=== PATIENT | female | born 1980 | race Caucasian/White ===

== ENCOUNTER 2019-02-06 09:26 | Emergency (ER) | payer MEDICAID, OTHER ==
[~2019-02-06] VITALS: Wt 42.2 kg
[2019-02-06] MEDS ORDERED: CARB100/5M (09:43)
[2019-02-06] MEDS ORDERED: ESTR1PAT37 (09:43)
[2019-02-06] MEDS ORDERED: CETI-265 (09:43)
[2019-02-06] MEDS ORDERED: IPRA3AMP31 (09:43)
[2019-02-06] MEDS ORDERED: LEVO50TA6 (09:43)
--- NOTE | 2019-02-06 09:48 | ED Integumentary General ---
General Chief Complaint: Skin/Wound Problems Stated Complaint: LT ARM WOUND Source: patient Exam Limitations: no limitations History of Present Illness Date Seen by Provider: Feb 06, 2019 Time Seen by Provider: 09:30 Initial Comments Patient presents to ER by private conveyance with her mother who is also her caregiver. Patient has cervical palsy and is dependent on her mother for cares as well as a wheelchair. For the past month the mother's noticed some pink and irritated skin in the fold of her right antecubital space. She had been doctoring it with miconazole topical powder. One week ago it opened up a small sore so she went to urgent care and they put her on mupirocin topically. She's been using it and trying to keep the skin clean and dry as well as possible however has not healed. The patient does not have a lot of pressure ulcer problems. There is no drainage from the wound. No fevers or chills. She has had occasional cough and several of the caregivers have had colds recently. Allergies and Home Medications Allergies Coded Allergies: adhesive tape (Verified Allergy, Unknown, 02/06/19) tobramycin (Verified Allergy, Unknown, rash, 02/06/19) Patient Home Medication List Home Medication List Reviewed: Yes Review of Systems Review of Systems Constitutional: No chills, No diaphoresis EENTM: No ear discharge, No ear pain Respiratory: cough; No phlegm, No short of breath Cardiovascular: No chest pain, No edema Gastrointestinal: No abdominal pain, No vomiting Genitourinary: No discharge, No dysuria, No hematuria Past Qqewmpq-Ocxpyr-Xlnkjw Hx Patient Social History Alcohol Use: Denies Use Recreational Drug Use: No Smoking Status: Never a Smoker Physical Exam Vital Signs Capillary Refill : General Appearance: WD/WN, no apparent distress HEENT: PERRL/EOMI, TMs normal, pharynx normal Cardiovascular: normal peripheral pulses, regular rate, rhythm, no edema Respiratory: lungs clear, normal breath sounds, no respiratory distress, no accessory muscle use Neurologic/Psychiatric: alert, normal mood/affect Skin: other (in the fold of the right antecubital space is a 2 mm round white breakdown surrounded by about 1/2 cm radius of erythema without induration, fluctuance or abscess. No discharge.) Progress/Results/Core Measures Progress Progress Note : Time: 09:45 Progress Note She has failed outpatient topical so we'll put her on some Bactrim with anti- MRSA coverage. We'll also suggest that she follow up with wound care for continued management if the antibiotics do not help. We have discontinued use of the topical powders on the open wound. It is just into the dermis and there is nothing to be drained palpable. It appears to be some breakdown probably secondary to maceration from how she holds her arm in a semi-contractured state. We have suggested also that she keep the skin dry and open to air when possible. Departure Impression Primary Impression: Wound of skin Additional Impression: URI (upper respiratory infection) Qualified Codes: J00 - Acute nasopharyngitis [common cold] Disposition: HOME, SELF-CARE Condition: Stable Departure-Patient Inst. Decision time for Depature: 09:47 Referrals: LAVON DICKERSON MD (PCP/Family) Primary Care Physician JILLIAN DURAND MD Patient Instructions: Wound Care (DC) Add. Discharge Instructions: Keep the wound clean with regular soap and water. Do not use peroxide, alcohol, iodine. Keep the wound dry and open to air when possible. If she continues to flex her arm then you can at least put a dry piece of cotton gauze such as a 4 x 4 to help with moisture away. Tomorrow call Dr. Blake at [facility] and request an appointment for follow-up. passenger service supervisor the Bactrim and give 20 mL through the PEG tube twice a day for the next week. Expect to see some improvement by day 3 or 4 of antibiotics. All discharge instructions reviewed with patient and/or family. Voiced understanding. Scripts Sulfamethoxazole/Trimethoprim (Sulfamethoxazole-Tmp Susp 200MG/40MG/5ML) 473 Ml Oral.susp 20 ML PO BID for 7 Days, #280 ML 0 Refills Prov: ADELINA HERNÁNDEZ 02/06/19 Copy Copies To 1: JILLIAN DURAND MD, TITUS J Feb 06, 2019 09:48
[2019-02-06] MEDS ORDERED: SULF473O9 PO (09:49)
[2019-02-06 09:55] VITALS: BP 92/53
== END 2019-02-06 10:05 | disposition home or self-care (01) ==
LOC: ER FS 09:28
DX: L98.499 Non-pressure chronic ulcer of skin of other sites with unspecified severity (principal); J06.9 Acute upper respiratory infection, unspecified; Z88.1 Allergy status to other antibiotic agents; Z88.8 Allergy status to other drugs, medicaments and biological substances
CPT/HCPCS: 99282

== ENCOUNTER → 2021-03-19 | Outpatient (CLI) | payer MEDICARE, MEDICAID ==
[~2021-03-19] MED LIST: CARB100/5M; CETI-265; ESTR1PAT37; IPRA3AMP31; LEVO50TA6; SULF473O9 PO
--- NOTE | 2021-03-19 12:07 | Diagnostic Imaging Report ---
EXAMINATION: Chest 2 view HISTORY: PNEUMONIA COMPARISON: None available. FINDINGS: Heart size and pulmonary vasculature are normal. The lungs are clear without consolidation, pleural effusion, or pneumothorax. The osseous structures are intact. IMPRESSION: 1. No acute radiographic abnormality in the chest. Dictated by: Dictated on workstation # [id number]
[2021-03-19 13:25] LABS: BASOPHILS % (AUTO) 0 % (0-10); EOSINOPHILS # (AUTO) 0.7 10^3/uL (0.0-0.3); EOSINOPHILS % (AUTO) 12 % (0-10); HEMATOCRIT 38 % (35-52); LYMPHOCYTES # (AUTO) 1.6 X 10^3 (1.0-4.0); LYMPHOCYTES % (AUTO) 27 % (12-44); MEAN CORPUSCULAR HEMOGLOBIN 36 pg (25-34); MEAN CORPUSCULAR HGB CONC 34 g/dL (32-36); MEAN CORPUSCULAR VOLUME 107 fL (80-99); MEAN PLATELET VOLUME 11.1 fL (9.0-12.2); MONOCYTES # (AUTO) 0.4 X 10^3 (0.0-1.0); MONOCYTES % (AUTO) 7 % (0-12); NEUTROPHILS # (AUTO) 3.1 X 10^3 (1.8-7.8); NEUTROPHILS % (AUTO) 54 % (42-75); PLATELET COUNT 229 10^3/uL (130-400); WHITE BLOOD COUNT 5.8 10^3/uL (4.3-11.0)
[2021-03-19 13:26] LABS: BASOPHILS % (MANUAL) 1 %; EOSINOPHILS % (MANUAL) 16 %; LYMPHOCYTES % (MANUAL) 28 %; MONOCYTES % (MANUAL) 1 %; NEUTROPHILS % (MANUAL) 54 %; PLATELET ESTIMATE ADEQUATE
== END ==
LOC: LAB FS 11:30
PROVIDERS: ATTEND Nurse Practitioner Family
DX: J18.9 Pneumonia, unspecified organism (principal)
CPT/HCPCS: 36415; 71046; 85007; 85027

== ENCOUNTER 2021-05-27 09:19 | Emergency (ER) | payer MEDICARE, MEDICAID ==
[~2021-05-27] VITALS: Ht 145 cm; Wt 40.8 kg
--- OUTSIDE RECORDS SUMMARY | 2021-05-27 09:25 | XMS REPORT | Clinical Summary ---
Author Author [facility] Organization [facility] Address Unknown Phone Unavailable Care Team Providers Care Leather Goods I Assembler Name Role Phone Jamie Lawrence MD PCP Deborah Marie MD Unavailable Louie Ansari MD Unavailable Elvis Davila DO Unavailable Zaira Lawson MD, John R Unavailable Source Comments Some departments are not documenting in the electronic medical record. If you d o not see the information that you expected, contact Release of Information in [facility] Health Information Management department at [phone] for further assistan ce in locating additional records.[facility] Allergies No known active allergies Medications End Date Status Medication Sig Dispensed Refills Start Date Active methylphenidate SR Take 1 Tab by 0 (CONCERTA) 54 mg tablet mouth Daily. 8 Active estrogens, Take 1 Tab by 0 conj/medroxyprogesterone mouth At 8 (PREMPRO) 0.625/2.5 mg Bedtime tablet Daily. Active MULTIVITAMIN PO Take 1 Tab by 0 mouth Daily. 8 Active carbamazepine XR Take 2 Tabs 60 0 (TEGRETOL XR) 100 mg by mouth 8 tablet Twice Daily. Active POLYETHYLENE GLYCOL 3350 Take 1 Dose 0 (MIRALAX PO) Pack by mouth Daily. 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, with int ractable epilepsy Intermittent dysphagia 08/21/2007 Encephalopathy, unspecified 08/21/2007 Surgical History Surgery Date Site/Laterality Comments FOOT SURGERY Heel cord surgery ENTERIC TUBE PLACEMENT Medical History Medical History Date Comments Leukemia (HCC) Age 2 Brain damage Family History Medical History Relation Name Comments Stroke Father Relation Name Status Comments Father Alive Mother Alive Social History Date Tobacco Use Types Packs/Day Years Used Never Smoker Smokeless Tobacco: Never Used Comments Alcohol Use Standard Drinks/Week No 0 (1 standard drink = 0.6 o z pure alcohol) Sex Assigned at Date Recorded Not on file Last Filed Vital Signs Reading Time Taken Comments Vital Sign 124/80 08/06/2012 12:02 PM COILER Blood Pressure 57 08/06/2012 12:02 PM COILER Pulse 36.1 °C (97 °F) 08/06/2012 12:02 PM COILER Temperature 14 08/06/2012 12:02 PM COILER Respiratory Rate 97% 12/01/2009 6:00 AM CDT Oxygen Saturation - - Inhaled Oxygen Concentration 37.6 kg (83 lb) 08/06/2012 12:02 PM COILER stated Weight 144.8 cm (4' 9") 08/06/2012 12:02 PM COILER Height 17.96 08/06/2012 12:02 PM COILER Body Mass Index Plan of Treatment Health Maintenance Due Date Last Done Comments HIV SCREENING 1994 DTAP/TDAP VACCINES (1 - 1997 Tdap) HEPATITIS C SCREENING 1997 PHYSICAL (COMPREHENSIVE) 1997 EXAM CERVICAL CANCER SCREENING 01/02/2000 BREAST CANCER SCREENING 2019 INFLUENZA VACCINE 12/30/2020 Results Not on filefrom Last 3 Months Advance Directives Patient Housing Management Representative Explanation Type Date Recorded Advance 05/04/2013 1:43 PM Directive/DPOA Care Teams Start Date End Date Leather Goods I Assembler Relationship Specialty 11/21/09 Jamie Lawrence MD PCP - General [address] [place] [id number] 04/01/10 Deborah Marie MD [address] [facility] [address] [place] [id number] 04/01/10 Louie Ansari MD [address] [facility] [address] [place] [address] 04/01/10 Elvis Davila DO [address] [facility] [place], [place] [id number] 05/07/12 Elvis Meneses Jr., MD [address] [address]
[2021-05-27 09:32] VITALS: BP 104/63
--- NOTE | 2021-05-27 09:36 | ED Cough/URI ---
General Stated Complaint: SOB,LOW O2,COUGH History of Present Illness Date Seen by Provider: May 27, 2021 Time Seen by Provider: 09:31 Initial Comments 41-year-old female brought in by her mom who is her manager home healthcare. Patient has a history of cerebral palsy. Reports that she noticed yesterday she became little more gurgly and seemed to be a little bit more coughing and short of breath than she normally is. Patient does not have any reports of fever but frequently does not run fevers. Patient does have frequent bronchitis due to her CP. No known exposure to Covid. Allergies and Home Medications Allergies Coded Allergies: adhesive tape (Verified Allergy, Unknown, 02/06/19) tobramycin (Verified Allergy, Unknown, rash, 02/06/19) Patient Home Medication List Home Medication List Reviewed: Yes Azithromycin (Azithromycin) 200 Mg/5 Ml Susp.recon, 6.25 ML PO DAILY Prescribed by: CAYDEN ESTRADA on 05/27/21 1057 Carbamazepine (Carbamazepine) 20 Mg/Ml Oral.susp, (Reported) Entered as Reported by: AMI CHAVEZ on 02/06/19942 Cetirizine HCl (Cetirizine HCl) 1 Mg/1 Ml Solution, (Reported) Entered as Reported by: AMI CHAVEZ on 02/06/19942 Estradiol/Levonorgestrel (Climara Pro Patch 0.045mg/hr) 1 Each Patch.tdwk, (Reported) Entered as Reported by: AMI CHAVEZ on 02/06/19942 Ipratropium/Albuterol Sulfate (Iprat-Albut 0.5-3(2.5) mg/3 ml) 3 Ml Ampul.neb, (Reported) Entered as Reported by: AMI CHAVEZ on 02/06/19942 Levothyroxine Sodium (Levothyroxine Sodium) 50 Mcg Tablet, (Reported) Entered as Reported by: AMI CHAVEZ on 02/06/19942 Sulfamethoxazole/Trimethoprim (Sulfamethoxazole-Tmp Susp 200MG/40MG/5ML) 473 Ml Oral.susp, 20 ML PO BID Prescribed by: ADELINA HERNÁNDEZ on 02/06/19 0949 Review of Systems Review of Systems Constitutional: see HPI; No chills, No fever Respiratory: see HPI, cough Cardiovascular: no symptoms reported Gastrointestinal: no symptoms reported Genitourinary: no symptoms reported Musculoskeletal: no symptoms reported Skin: no symptoms reported Psychiatric/Neurological: No Symptoms Reported Past Irfgans-Qvdjjc-Edtopw Hx Seasonal Allergies Seasonal Allergies: No Past Medical History Surgeries: Yes (feeding tube) Respiratory: Yes Pneumonia, COPD Cardiac: No Neurological: Yes (CVD) Cerebral Palsy, Seizure Disorder Genitourinary: No Gastrointestinal: Yes (feeding tube) Musculoskeletal: Yes Contracture Endocrine: Yes Hypothyroidsim HEENT: No Cancer: Yes Leukemia Psychosocial: No Integumentary: No Physical Exam Vital Signs - First Documented 05/27/21 11:10 Pulse Ox 91 Capillary Refill : Height: 0'0" Weight: 93lbs. oz. 42.298856np; BMI Method:Stated General Appearance: no apparent distress, other (Wheelchair-bound) Respiratory: other (Mild decreased breath sounds but mostly upper airway sounds been referred) Cardiovascular: normal peripheral pulses, regular rate, rhythm Gastrointestinal: soft Neurologic/Psychiatric: other (Patient at her baseline mentation) Skin: normal color, warm/dry Focused Exam Lactate Level 05/27/21 10:00: Lactic Acid Level 1.51 Lactic Acid Level Laboratory Tests Test 05/27/21 10:00 Lactic Acid Level 1.51 MMOL/L (0.50-2.00) Progress/Results/Core Measures Suspected Sepsis SIRS Temperature: Pulse: Respiratory Rate: Laboratory Tests 05/27/21 10:00: White Blood Count 8.5 Blood Pressure / Mean: 05/27/21 10:00: Lactic Acid Level 1.51 Laboratory Tests 05/27/21 10:00: Creatinine 0.50L, Platelet Count 252, Total Bilirubin 0.2 Results/Orders Lab Results Laboratory Tests Test 05/27/21 10:00 Range/Units White Blood Count 8.5 4.3-11.0 10^3/uL Red Blood Count 3.70 L 3.80-5.11 10^6/uL Hemoglobin 13.5 11.5-16.0 g/dL Hematocrit 38 35-52 % Mean Corpuscular Volume 103 H 80-99 fL Mean Corpuscular Hemoglobin 36 H 25-34 pg Mean Corpuscular Hemoglobin Concent 35 32-36 g/dL Red Cell Distribution Width 12.9 10.0-14.5 % Platelet Count 252 130-400 10^3/uL Mean Platelet Volume 10.8 9.0-12.2 fL Immature Granulocyte % (Auto) % Neutrophils (%) (Auto) 67 42-75 % Lymphocytes (%) (Auto) 16 12-44 % Monocytes (%) (Auto) 5 0-12 % Eosinophils (%) (Auto) 13 H 0-10 % Basophils (%) (Auto) 0 0-10 % Neutrophils # (Auto) 5.7 1.8-7.8 X 10^3 Lymphocytes # (Auto) 1.3 1.0-4.0 X 10^3 Monocytes # (Auto) 0.4 0.0-1.0 X 10^3 Eosinophils # (Auto) 1.1 H 0.0-0.3 10^3/uL Basophils # (Auto) 0.0 0.0-0.1 10^3/uL Neutrophils % (Manual) 55 % Lymphocytes % (Manual) 14 % Monocytes % (Manual) 3 % Eosinophils % (Manual) 12 % Basophils % (Manual) 0 % Band Neutrophils 15 % Atypical Lymphocytes 1 % Platelet Estimate NORMAL Macrocytosis 1+ Sodium Level 134 L 135-145 MMOL/L Potassium Level 3.9 3.6-5.0 MMOL/L Chloride Level 99 98-107 MMOL/L Carbon Dioxide Level 23 21-32 MMOL/L Anion Gap 12 5-14 MMOL/L Blood Urea Nitrogen 13 7-18 MG/DL Creatinine 0.50 L 0.60-1.30 MG/DL Estimat Glomerular Filtration Rate 135 BUN/Creatinine Ratio 26 Glucose Level 115 H 70-105 MG/DL Lactic Acid Level 1.51 0.50-2.00 MMOL/L Calcium Level 9.3 8.5-10.1 MG/DL Corrected Calcium 9.6 8.5-10.1 MG/DL Total Bilirubin 0.2 0.1-1.0 MG/DL Aspartate Amino Transf (AST/SGOT) 17 5-34 U/L Alanine Aminotransferase (ALT/SGPT) 20 0-55 U/L Alkaline Phosphatase 163 H 40-136 U/L C-Reactive Protein 5.20 H <0.50 MG/DL Total Protein 7.7 6.4-8.2 GM/DL Albumin 3.6 3.2-4.5 GM/DL Influenza Type A Antigen NEGATIVE NEGATIVE Influenza Type B Antigen NEGATIVE NEGATIVE SARS-CoV-2 RNA (RT-PCR) Not Detected Not Detecte My Orders Orders - ESTRADA,CAYDEN L DO Cbc With Automated Diff (05/27/21 09:39) Comprehensive Metabolic Panel (05/27/21 09:39) Blood Culture (05/27/21 09:39) Covid 19 Inhouse Test (05/27/21 09:39) Influenza A & B Antigens (05/27/21 09:39) Lactic Acid Analyzer (05/27/21 09:39) Chest Pa/Lat (2 View) (05/27/21 09:39) Crp Fs (05/27/21 09:39) Manual Differential (05/27/21 10:00) Vital Signs/I&O 05/27/21 05/27/21 05/27/21 09:32 09:32 11:10 Temp 36.1 Pulse 91 65 Resp 19 17 B/P (MAP) 104/63 (77) Pulse Ox 91 O2 Delivery Room Air Room Air Room Air Capillary Refill : Progress Note : Progress Note Patient with negative checks x-ray for any acute pneumonia. Patient does have an upper respiratory infection consistent with a bronchitis. Labs show no acute findings. Her Covid test is pending. She is negative for influenza. Discussed with her mom who is her caregiver. She is ready be discharged home and we will call her with the Covid results. If she is positive we will set her up for a Regeneron infusion. I will start her on antibiotic due to her history of CP and high risk for bacterial infection. Patient stable and discharged Diagnostic Imaging Diagonstic Imaging: Xray Plain Films/CT/US/NM/MRI: chest Comments Date of Exam:05/27/21 CHEST PA/LAT (2 VIEW) INDICATION: Cough. TIME OF EXAM: 9:54 AM Correlation is made with prior chest from 03/19/2021. FINDINGS: The heart size is normal. The pulmonary vascularity is unremarkable. The lungs are clear. No infiltrate, effusion or pneumothorax is detected. IMPRESSION: No acute cardiopulmonary process is detected. Reviewed: Reviewed by Me, Reviewed/Discussed Departure Impression Primary Impression: Upper respiratory infection Qualified Codes: J06.9 - Acute upper respiratory infection, unspecified Disposition: HOME, SELF-CARE Condition: Stable Departure-Patient Inst. Referrals: LAVON DICKERSON MD (PCP/Family) Primary Care Physician Patient Instructions: Bacterial Upper Respiratory Infection, Adult (DC), Viral Upper Respiratory Infection, Adult (DC) Add. Discharge Instructions: Follow-up with your primary care provider in a couple days for close monitoring on outpatient basis Return to the ER as needed Scripts Azithromycin (Azithromycin) 200 Mg/5 Ml Susp.recon 6.25 ML PO DAILY for 5 Days, #38 ML 13.5 mL for the first day then 6.25 mL for day 2 through 5 through feeding tube Prov: CAYDEN ESTRADA DO 05/27/21 CAYDEN ESTRADA DO May 27, 2021 09:36
--- NOTE | 2021-05-27 10:07 | Diagnostic Imaging Report ---
INDICATION: Cough. TIME OF EXAM: 9:54 AM Correlation is made with prior chest from 03/19/2021. FINDINGS: The heart size is normal. The pulmonary vascularity is unremarkable. The lungs are clear. No infiltrate, effusion or pneumothorax is detected. IMPRESSION: No acute cardiopulmonary process is detected. Dictated by: Dictated on workstation # [id number]
[2021-05-27 10:21] LABS: BASOPHILS % (AUTO) 0 % (0-10); EOSINOPHILS % (AUTO) 13 % (0-10); HEMATOCRIT 38 % (35-52); HEMOGLOBIN 13.5 g/dL (11.5-16.0); LYMPHOCYTES % (AUTO) 16 % (12-44); MEAN CORPUSCULAR HEMOGLOBIN 36 pg (25-34); MEAN CORPUSCULAR HGB CONC 35 g/dL (32-36); MEAN CORPUSCULAR VOLUME 103 fL (80-99); MEAN PLATELET VOLUME 10.8 fL (9.0-12.2); MONOCYTES % (AUTO) 5 % (0-12); NEUTROPHILS % (AUTO) 67 % (42-75); PLATELET COUNT 252 10^3/uL (130-400); WHITE BLOOD COUNT 8.5 10^3/uL (4.3-11.0)
[2021-05-27 10:22] LABS: EOSINOPHILS # (AUTO) 1.1 10^3/uL (0.0-0.3); LYMPHOCYTES # (AUTO) 1.3 X 10^3 (1.0-4.0); MONOCYTES # (AUTO) 0.4 X 10^3 (0.0-1.0); NEUTROPHILS # (AUTO) 5.7 X 10^3 (1.8-7.8)
[2021-05-27 10:35] LABS: POTASSIUM 3.9 MMOL/L (3.6-5.0)
[2021-05-27 10:36] LABS: ALBUMIN 3.6 GM/DL (3.2-4.5); BILIRUBIN,TOTAL 0.2 MG/DL (0.1-1.0); CALCIUM 9.3 MG/DL (8.5-10.1); CREATININE SERUM 0.5 MG/DL (0.60-1.30); TOTAL PROTEIN 7.7 GM/DL (6.4-8.2)
[2021-05-27 10:42] LABS: ATYPICAL LYMPHOCYTES 1 %; BAND NEUTROPHILS 15 %; BASOPHILS % (MANUAL) 0 %; EOSINOPHILS % (MANUAL) 12 %; LYMPHOCYTES % (MANUAL) 14 %; MONOCYTES % (MANUAL) 3 %; NEUTROPHILS % (MANUAL) 55 %; PLATELET ESTIMATE NORMAL
[2021-05-27] MEDS ORDERED: AZIT200S47 PO (10:57)
== END 2021-05-27 11:10 | disposition home or self-care (01) ==
LOC: EDUNIT# 09:19 → ER FS 09:21
DX: J06.9 Acute upper respiratory infection, unspecified (principal); G80.9 Cerebral palsy, unspecified; J44.9 Chronic obstructive pulmonary disease, unspecified; G40.909 Epilepsy, unspecified, not intractable, without status epilepticus; E03.9 Hypothyroidism, unspecified; Z79.890 Hormone replacement therapy; Z79.899 Other long term (current) drug therapy; Z20.822 Contact with and (suspected) exposure to COVID-19
CPT/HCPCS: 36415; 71046; 80053; 83605; 85007; 85027; 86141; 87040; 87636; 87804

== ENCOUNTER 2021-12-07 12:09 | Emergency (ER) | payer MEDICARE, MEDICAID ==
[~2021-12-07 12:09] MED LIST changes: +AZIT200S47 PO
[2021-12-07] MEDS ORDERED: RT-ALBUTEROL/IPRATROPIUM 3 ML (DUONEB) VIAL INH STA (12:22)
[2021-12-07 12:23] VITALS: BP 112/85
[2021-12-07] MEDS ORDERED: RT-ALBUTEROL/IPRATROPIUM 3 ML (DUONEB) VIAL ONE (12:23)
--- NOTE | 2021-12-07 12:27 | ED Respiratory ---
General Chief Complaint: Respiratory Problems Stated Complaint: WHEEZING Source: mother Exam Limitations: physical impairment (cerebral palsy) History of Present Illness Date Seen by Provider: Dec 07, 2021 Time Seen by Provider: 12:11 Initial Comments 41-year-old female presenting with complaints of increased cough and wheezing. Mom states that she routinely gets breathing treatments of DuoNeb at home but they have not been lasting as long in the last day or 2. She has been having increased wheezing and cough. She does have cerebral palsy. She has not had a fever but mom states that she does not run a fever. She otherwise has been at her baseline. She has not been around anyone that has been sick recently. Severity: moderate Prior Episodes/Possible Cause: chronic episodes Modifying Factors: Improves With Albuterol Nebulizer (duoneb treatments help but not lasting the full 6 hours) Associated Symptoms: cough, wheezing Allergies and Home Medications Allergies Coded Allergies: adhesive tape (Verified Allergy, Unknown, 02/06/19) tobramycin (Verified Allergy, Unknown, rash, 02/06/19) Patient Home Medication List Home Medication List Reviewed: Yes Azithromycin (Azithromycin) 200 Mg/5 Ml Susp.recon, 6.25 ML PO DAILY Prescribed by: CAYDEN ESTRADA on 05/27/21 1057 Carbamazepine (Carbamazepine) 20 Mg/Ml Oral.susp, (Reported) Entered as Reported by: AMI CHAVEZ on 02/06/19 0943 Cetirizine HCl (Cetirizine HCl) 1 Mg/1 Ml Solution, (Reported) Entered as Reported by: AMI CHAVEZ on 02/06/19 0943 Estradiol/Levonorgestrel (Climara Pro Patch 0.045mg/hr) 1 Each Patch.tdwk, (Reported) Entered as Reported by: AMI CHAVEZ on 02/06/19 0943 Ipratropium/Albuterol Sulfate (Iprat-Albut 0.5-3(2.5) mg/3 ml) 3 Ml Ampul.neb, (Reported) Entered as Reported by: AMI CHAVEZ on 02/06/19 0943 Levothyroxine Sodium (Levothyroxine Sodium) 50 Mcg Tablet, (Reported) Entered as Reported by: AMI CHAVEZ on 02/06/19 0943 Sulfamethoxazole/Trimethoprim (Sulfamethoxazole-Tmp Susp 200MG/40MG/5ML) 473 Ml Oral.susp, 20 ML PO BID Prescribed by: ADELINA HERNÁNDEZ on 02/06/19 0949 Review of Systems Review of Systems Constitutional: No chills, No fever EENTM: no symptoms reported Respiratory: see HPI Cardiovascular: no symptoms reported Gastrointestinal: no symptoms reported Genitourinary: no symptoms reported Musculoskeletal: no symptoms reported Skin: no symptoms reported Psychiatric/Neurological: No Symptoms Reported Past Npnyfno-Qpjedo-Orrtcs Hx Immunizations Up To Date First/Initial COVID19 Vaccinat: 10/16/20 Second COVID19 Vaccination [place]: 11/13/20 Seasonal Allergies Seasonal Allergies: No Past Medical History Surgery/Hospitalization HX: Cerebral Palsy, Bronchitis Surgeries: Yes (feeding tube) Respiratory: Yes Pneumonia, COPD Cardiac: No Neurological: Yes (CVD) Cerebral Palsy, Seizure Disorder Genitourinary: No Gastrointestinal: Yes (feeding tube) Musculoskeletal: Yes Contracture Endocrine: Yes Hypothyroidsim HEENT: No Cancer: Yes Leukemia Psychosocial: No Integumentary: No Physical Exam Vital Signs - First Documented 12/07/21 12:23 Temp 36.6 Pulse 89 Resp 18 B/P (MAP) 112/85 (94) Pulse Ox 94 O2 Delivery Room Air Capillary Refill : Height: 0'0" Weight: 93lbs. oz. 42.116680jv; 19.00 BMI Method:Stated General Appearance: no apparent distress HEENT: PERRL/EOMI, pharynx normal Respiratory: chest non-tender, no respiratory distress, no accessory muscle u se, wheezing Cardiovascular: normal peripheral pulses, regular rate, rhythm Neurologic/Psychiatric: alert Skin: normal color, warm/dry Progress/Results/Core Measures Suspected Sepsis SIRS Temperature: Pulse: Respiratory Rate: Blood Pressure / Mean: Results/Orders Lab Results Laboratory Tests Test 12/07/21 12:25 Range/Units Influenza Type A (RT-PCR) Not Detected Not Detecte Influenza Type B (RT-PCR) Not Detected Not Detecte SARS-CoV-2 RNA (RT-PCR) Not Detected Not Detecte My Orders Orders - GLEN POLANCO MD Covid 19 Inhouse Test (12/07/21 12:21) Influenza A And B By Pcr (12/07/21 12:21) Isolation Central Supply Req (12/07/21 12:21) Chest 1 View Ap/Pa Only (12/07/21 12:21) Albuterol/Ipra Inhalation Soln (Duoneb I (12/07/21 12:22) Svn Small Volume Nebulizer (12/07/21 12:22) Albuterol/Ipra Inhalation Soln (Duoneb I (12/07/21 12:23) Dexamethasone Injection (Decadron Inje (12/07/21 13:39) Methylprednisolone Acetate Inj (Depo-Med (12/07/21 13:39) Vital Signs/I&O 12/07/21 12:23 Temp 36.6 Pulse 89 Resp 18 B/P (MAP) 112/85 (94) Pulse Ox 94 O2 Delivery Room Air Capillary Refill : Progress Note #1: Progress Note Obtain chest x-ray to look for signs of pneumonia or infiltrate. Flu and COVID swab to evaluate for those viruses. Administer a DuoNeb breathing treatment to help with her wheezing. Progress Note #2: Progress Note Chest x-ray is negative for acute process. Influenza and COVID are all negative. We will reassure mom and see if she wanted to try a steroid to help with the wheezing. Advised that she could increase the breathing treatments to every 4 hours for the next 2 days to try and help After discussing with mom the patient will get the Decadron and Depo-Medrol shot here in the ED. Given 10 mg of Decadron IM and 40 mg of Depo-Medrol. Encouraged use of humidity and moisture at home as well as increased breathing treatments to every 4 hours if needed for the next 2 days. Diagnostic Imaging Diagonstic Imaging: Xray Plain Films/CT/US/NM/MRI: chest Comments NAME: DEANA BELLO [facility] REC#: [id number] PT STATUS: REG ER : 1980 PHYSICIAN: GLEN POLANCO MD ADMIT DATE: 12/07/21/ER FS Signed Date of Exam:12/07/21 CHEST 1 VIEW AP/PA ONLY CHEST 1 VIEW AP/PA ONLY Indication: Cough Comparison: 05/27/2021 Findings: No focal airspace disease in the visualized lungs. Please note that the posterior lower lobes are poorly evaluated by portable radiography. No pleural effusion or pneumothorax. Normal cardiomediastinal silhouette. Impression: 1. No acute cardiopulmonary process by portable radiography. Dictated by: Dictated on workstation # [id number] Dict: 12/07/21 1249 Trans: 12/07/21 1249 [facility] [id number] Interpreted by: KEN GREGG MD Electronically signed by: KEN GREGG MD 12/07/21 1249 Reviewed: Reviewed by Me Departure Impression Primary Impression: Wheezing Additional Impression: Upper respiratory infection with cough and congestion Disposition: 01 HOME, SELF-CARE Condition: Stable Departure-Patient Inst. Decision time for Depature: 13:41 Referrals: LAVON DICKERSON MD (PCP/Family) Primary Care Physician Patient Instructions: Upper Respiratory Infection ED Add. Discharge Instructions: Try using a humidifier or extra humidity at the bedside. Follow-up with primary provider for continued concerns. For the next 2 days you could increase the breathing treatments to every 4 hours if needed for wheezing and trouble breathing. The steroid shots from today should help with her congestion and wheezing as well. All discharge instructions reviewed with patient and/or family. Voiced understanding. GLEN POLANCO MD Dec 07, 2021 12:26
--- NOTE | 2021-12-07 12:51 | Diagnostic Imaging Report ---
CHEST 1 VIEW AP/PA ONLY Indication: Cough Comparison: 05/27/2021 Findings: No focal airspace disease in the visualized lungs. Please note that the posterior lower lobes are poorly evaluated by portable radiography. No pleural effusion or pneumothorax. Normal cardiomediastinal silhouette. Impression: 1. No acute cardiopulmonary process by portable radiography. Dictated by: Dictated on workstation # [id number]
[2021-12-07] MEDS ORDERED: methylPREDNISolone 40 MG/ML (DEPO MEDROL) VIAL IM STA (13:39)
== END 2021-12-07 13:50 | disposition home or self-care (01) ==
LOC: EDUNIT# 12:09 → ER FS 12:11
DX: J06.9 Acute upper respiratory infection, unspecified (principal); Z20.822 Contact with and (suspected) exposure to COVID-19; Z79.899 Other long term (current) drug therapy
CPT/HCPCS: 71045; 87636; 94640

== ENCOUNTER 2022-09-24 15:17 | Emergency (ER) | payer MEDICARE, MEDICAID ==
[2022-09-24 15:26] VITALS: BP 95/58
--- NOTE | 2022-09-24 15:42 | ED General ---
General Chief Complaint: Abdominal/GI Problems Stated Complaint: ABD PAIN Nursing Triage Note: Patient has been brought to ER in her wheel chair by mom with cc of possible stomach bothering the patient. Mom reports that the patient has been moaning at times and Mom wonders if something is bothering her stomach. Patient is non verbal with staff. Source of Information: Caregiver, Family Exam Limitations: Physical Impairments History of Present Illness Date Seen by Provider: Sep 24, 2022 Time Seen by Provider: 13:25 Initial Comments This 42-year-old woman is brought to the emergency room by her mother with concerns about abdominal pain. 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 She is nonverbal and wheelchair confined. Mom provides full care. Mother reports that patient has been making grunting noises consistently throughout the past 2 to 3 days. Previously, this has occurred when she has been in pain, specifically with C. difficile colitis. Mom thought that she was constipated yesterday and gave an enema. She did produce a bowel movement. Mom reports she was bathed this morning and no abnormalities were seen anywhere on her body surface. She does not appear in distress at this time. She has not had any fever or vomiting. There are no respiratory symptoms. Dr. Dickerson is h er primary care provider. Mom is concerned that she may be developing constipation, fecal impaction, C. difficile colitis, or some other abdominal problem. Allergies and Home Medications Allergies Coded Allergies: adhesive tape (Verified Allergy, Unknown, 02/06/19) tobramycin (Verified Allergy, Unknown, rash, 02/06/19) Patient Home Medication List Home Medication List Reviewed: Yes Azithromycin (Azithromycin) 200 Mg/5 Ml Susp.recon, 6.25 ML PO DAILY Prescribed by: CAYDEN ESTRADA on 05/27/21 1057 Carbamazepine (Carbamazepine) 20 Mg/Ml Oral.susp, (Reported) Entered as Reported by: AMI CHAVEZ on 02/06/19 0943 Cetirizine HCl (Cetirizine HCl) 1 Mg/1 Ml Solution, (Reported) Entered as Reported by: AMI CHAVEZ on 02/06/19 0943 Estradiol/Levonorgestrel (Climara Pro Patch 0.045mg/hr) 1 Each Patch.tdwk, (Reported) Entered as Reported by: AMI CHAVEZ on 02/06/19942 Ipratropium/Albuterol Sulfate (Iprat-Albut 0.5-3(2.5) mg/3 ml) 3 Ml Ampul.neb, (Reported) Entered as Reported by: AMI CHAVEZ on 02/06/19942 Levothyroxine Sodium (Levothyroxine Sodium) 50 Mcg Tablet, (Reported) Entered as Reported by: AMI CHAVEZ on 02/06/19942 Sulfamethoxazole/Trimethoprim (Sulfamethoxazole-Tmp Susp 200MG/40MG/5ML) 473 Ml Oral.susp, 20 ML PO BID Prescribed by: ADELINA HERNÁNDEZ on 02/06/19948 Review of Systems Review of Systems Constitutional: no symptoms reported EENTM: no symptoms reported Respiratory: no symptoms reported Cardiovascular: no symptoms reported Gastrointestinal: see HPI Genitourinary: no symptoms reported : No Musculoskeletal: no symptoms reported Skin: no symptoms reported Psychiatric/Neurological: See HPI Hematologic/Lymphatic: No Symptoms Reported Immunological/Allergic: no symptoms reported Past Oypzhpw-Llsrim-Jekdqr Hx Patient Social History Tobacco Use?: No Use of E-Cig and/or Vaping dev: No Substance use?: No Alcohol Use?: No Immunizations Up To Date First/Initial COVID19 Vaccinat: 10/16/20 Second COVID19 Vaccination [place]: 11/13/20 Seasonal Allergies Seasonal Allergies: No Past Medical History Surgery/Hospitalization HX: Cerebral Palsy, Bronchitis Surgeries: Yes (feeding tube) Respiratory: Yes Pneumonia, COPD Cardiac: No Neurological: Yes (CVD) 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 oz. [id number]; 19.00 BMI Method:Stated General Appearance: No Apparent Distress, WD/WN HEENT: PERRL/EOMI, TMs Normal, Normal ENT Inspection, Pharynx Normal Neck: Normal Inspection Respiratory: No Accessory Muscle Use, No Respiratory Distress; No Crackles; Rhonci; No Wheezing Cardiovascular: Regular Rate, Rhythm, No Edema, No Murmur Gastrointestinal: Normal Bowel Sounds, Soft; No Distended Extremity: No Pedal Edema, Other (Contractures) Neurologic/Psychiatric: Alert, Other (Chronic CP like deficits from INSTRUMENT REPAIR TECHNICIAN damage from leukemia treatment) Progress/Results/Core Measures Suspected Sepsis SIRS Temperature: Pulse: 62 Respiratory Rate: 16 Laboratory Tests 09/24/22 17:15: White Blood Count 8.7 Blood Pressure 95 /58 Mean: 70 Laboratory Tests 09/24/22 17:15: Creatinine 0.44L, Platelet Count 184, Total Bilirubin 0.2 Results/Orders Lab Results Laboratory Tests Test 09/24/22 17:15 09/24/22 18:10 Range/Units White Blood Count 8.7 4.3-11.0 10^3/uL Red Blood Count 3.74 L 3.80-5.11 10^6/uL Hemoglobin 13.3 11.5-16.0 g/dL Hematocrit 40 35-52 % Mean Corpuscular Volume 107 H 80-99 fL Mean Corpuscular Hemoglobin 36 H 25-34 pg Mean Corpuscular Hemoglobin Concent 33 32-36 g/dL Red Cell Distribution Width 11.9 10.0-14.5 % Platelet Count 184 130-400 10^3/uL Mean Platelet Volume 10.6 9.0-12.2 fL Immature Granulocyte % (Auto) 0 % Neutrophils (%) (Auto) 60 42-75 % Lymphocytes (%) (Auto) 26 12-44 % Monocytes (%) (Auto) 5 0-12 % Eosinophils (%) (Auto) 9 0-10 % Basophils (%) (Auto) 0 0-10 % Neutrophils # (Auto) 5.2 1.8-7.8 10^3/uL Lymphocytes # (Auto) 2.3 1.0-4.0 10^3/uL Monocytes # (Auto) 0.4 0.0-1.0 10^3/uL Eosinophils # (Auto) 0.8 H 0.0-0.3 10^3/uL Basophils # (Auto) 0.0 0.0-0.1 10^3/uL Immature Granulocyte # (Auto) 0.0 0.0-0.1 10^3/uL Sodium Level 137 135-145 MMOL/L Potassium Level 4.3 3.6-5.0 MMOL/L Chloride Level 105 98-107 MMOL/L Carbon Dioxide Level 24 21-32 MMOL/L Anion Gap 8 5-14 MMOL/L Blood Urea Nitrogen 18 7-18 MG/DL Creatinine 0.44 L 0.60-1.30 MG/DL Estimat Glomerular Filtration Rate 123 BUN/Creatinine Ratio 41 Glucose Level 77 70-105 MG/DL Calcium Level 8.9 8.5-10.1 MG/DL Corrected Calcium 9.4 8.5-10.1 MG/DL Total Bilirubin 0.2 0.1-1.0 MG/DL Aspartate Amino Transf (AST/SGOT) 20 5-34 U/L Alanine Aminotransferase (ALT/SGPT) 22 0-55 U/L Alkaline Phosphatase 119 40-136 U/L C-Reactive Protein 9.17 H <0.50 MG/DL Total Protein 7.4 6.4-8.2 GM/DL Albumin 3.4 3.2-4.5 GM/DL Urine Color YELLOW Urine Clarity CLEAR Urine pH 7.5 5-9 Urine Specific [place] 1.015 L 1.016-1.022 Urine Protein NEGATIVE NEGATIVE Urine Glucose (UA) NEGATIVE NEGATIVE Urine Ketones NEGATIVE NEGATIVE Urine Nitrite NEGATIVE NEGATIVE Urine Bilirubin NEGATIVE NEGATIVE Urine Urobilinogen 0.2 < = 1.0 MG/DL Urine Leukocyte Esterase TRACE H NEGATIVE Urine RBC (Auto) NEGATIVE NEGATIVE Urine RBC NONE /HPF Urine WBC 0-2 /HPF Urine Squamous Epithelial Cells RARE /HPF Urine Renal Epithelial Cells RARE /HPF Urine Crystals NONE /LPF Urine Bacteria NEGATIVE /HPF Urine Casts NONE /LPF Urine Mucus SMALL H /LPF Urine Culture Indicated NO My Orders Orders - CHLOÉ RAMACHANDRAN MD Acute Abd Series (09/24/22 15:36) Cbc With Automated Diff (09/24/22 16:45) Comprehensive Metabolic Panel (09/24/22 16:45) Crp Fs (09/24/22 16:45) Ed Iv/Invasive Line Start (09/24/22 16:45) Ct Abdomen/Pelvis Wo (09/24/22 ) Ua Culture If Indicated (09/24/22 18:30) Vital Signs/I&O 09/24/22 15:26 Temp 35.8 Pulse 62 Resp 16 B/P (MAP) 95/58 (70) Pulse Ox 96 O2 Delivery Room Air Capillary Refill : Blood Pressure Mean: 70 Progress Note #1: Progress Note No obvious abnormalities were identified on exam to explain her discomfort. Acute abdominal series was obtained and was suggestive of diarrhea condition or colitis. I discussed further options with mom including blood and urine analysis. Mom wished to proceed with blood work. CBC, CMP, and CRP were reviewed. CBC and CMP were unremarkable by my interpretation but CRP was moderately elevated. Progress Note #2: Progress Note After reviewing labs with mother, we discussed risks and benefits of further imaging. With shared decision making, we elected to proceed with CT scan. CT was interpreted by me and no acute abnormalities were identified.. Radiologist's interpretation was also reviewed with similar conclusion. Non contrast study was utilized as we were unsuccessful in establishing and IV. Mom would like to follow-up with PCP to obtain stool studies. Diagnostic Imaging Diagonstic Imaging: Xray Plain Films/CT/US/NM/MRI: chest, abdomen, pelvis Comments NAME: DEANA BELLO [facility] REC#: [id number] PT STATUS: REG ER : 1980 PHYSICIAN: CHLOÉ RAMACHANDRAN MD ADMIT DATE: 09/24/22/ER FS Draft Date of Exam:09/24/22 ACUTE ABD SERIES CLINICAL INDICATION: Patient is wheelchair-bound with abdominal pain. EXAM: X-ray of the chest with upright view and x-ray of the abdomen with supine and upright views. COMPARISON: Chest x-ray dated 12/07/2021. FINDINGS: The patient is rotated. The lungs are clear. There is no pleural effusion or pneumothorax. The pulmonary vasculature and cardiac silhouette are within normal limits. Bones show no significant abnormality. There are air-fluid levels within the distal left transverse colon and proximal descending colon and overlying the proximal sigmoid colon region. There is no intra-abdominal free air. There is left curvature of the lumbar spine. Suspected chondral lesion involving the left femoral intertrochanteric region. IMPRESSION: 1: There is no radiographic evidence of an acute cardiopulmonary process. 2: There are air-fluid levels involving the distal transverse colon, left colon, and sigmoid colon region. These findings may be seen with colitis or diarrhea. Clinical correlation is suggested. 3: There is no definite evidence of intestinal obstruction. Dictated on workstation # [id number] Dict: 09/24/22 1621 Trans: 09/24/22 1628 [id number] Interpreted by: PEARL PIERCE MD Diagonstic Imaging: CT Plain Films/CT/US/NM/MRI: abdomen, pelvis Comments NAME: DEANA BELLO [facility] REC#: [id number] PT STATUS: REG ER : 1980 PHYSICIAN: CHLOÉ RAMACHANDRAN MD ADMIT DATE: 09/24/22/ER FS Signed Date of Exam:09/24/22 CT ABDOMEN/PELVIS WO EXAMINATION: CT abdomen and pelvis without contrast. TECHNIQUE: Multiple contiguous axial images were obtained through the abdomen and pelvis without the use of intravenous contrast. All CT scans use one or more of the following dose optimizing techniques: automated exposure control, MA and/or KvP adjustment based on patient size and exam type or iterative reconstruction. HISTORY: Abdominal pain. COMPARISON: None available. FINDINGS: Limited views of the lower thorax show mild centrilobular nodules in the lung bases suggestive of an endobronchial infection. The liver is normal without focal lesion. There is no biliary ductal dilation. Gallbladder is normal. Pancreas is normal. Spleen is normal. Adrenal glands are normal. The kidneys are normal. There is no hydronephrosis. Urinary bladder is normal. Bowel is normal in caliber without obstruction or inflammation. There is a percutaneous gastrostomy tube. No free fluid or air. No abdominal or pelvic lymphadenopathy. Aorta is normal in caliber without aneurysm. There is no suspicious osseus lesion. IMPRESSION: No acute abnormality in the abdomen or pelvis. Dictated by: Dictated on workstation # [id number] Dict: 09/24/22 185 Trans: 09/24/221941 [facility] [id number] Interpreted by: BRAYAN LOPEZ MD Electronically signed by: BRAYAN LOPEZ MD 09/24/221941 Departure Impression Primary Impression: Abdominal pain Qualified Codes: R10.84 - Generalized abdominal pain Additional Impression: Colitis Disposition: 01 HOME, SELF-CARE Condition: Stable Departure-Patient Inst. Decision time for Depature: 19:48 Referrals: LAVON DICKERSON MD (PCP/Family) Primary Care Physician Patient Instructions: Abdominal Pain, Adult ED Add. Discharge Instructions: No serious infectious or surgical problems were identified on the CT scan. There may be some minimal colitis (irritation of the colon). This may be from a viral illness. If symptoms persist, contact Dr. Dickerson's office about ordering stool studies. You may continue using Tylenol (acetaminophen) up to 650 mg every 6 hours as needed. Return to the emergency room if there are worsening symptoms despite following these instructions. All discharge instructions reviewed with patient and/or family. Voiced understanding. Copy Copies To 1: LAVON DICKERSON MD, JOSHUA T MD Sep 24, 2022 15:42
--- NOTE | 2022-09-24 16:28 | Diagnostic Imaging Report ---
CLINICAL INDICATION: Patient is wheelchair-bound with abdominal pain. EXAM: X-ray of the chest with upright view and x-ray of the abdomen with supine and upright views. COMPARISON: Chest x-ray dated 12/07/2021. FINDINGS: The patient is rotated. The lungs are clear. There is no pleural effusion or pneumothorax. The pulmonary vasculature and cardiac silhouette are within normal limits. Bones show no significant abnormality. There are air-fluid levels within the distal left transverse colon and proximal descending colon and overlying the proximal sigmoid colon region. There is no intra-abdominal free air. There is left curvature of the lumbar spine. Suspected chondral lesion involving the left femoral intertrochanteric region. IMPRESSION: 1: There is no radiographic evidence of an acute cardiopulmonary process. 2: There are air-fluid levels involving the distal transverse colon, left colon, and sigmoid colon region. These findings may be seen with colitis or diarrhea. Clinical correlation is suggested. 3: There is no definite evidence of intestinal obstruction. Dictated by: Dictated on workstation # [id number]
[2022-09-24 17:20] LABS: BASOPHILS % (AUTO) 0 % (0-10); EOSINOPHILS # (AUTO) 0.8 10^3/uL (0.0-0.3); EOSINOPHILS % (AUTO) 9 % (0-10); HEMATOCRIT 40 % (35-52); HEMOGLOBIN 13.3 g/dL (11.5-16.0); LYMPHOCYTES # (AUTO) 2.3 10^3/uL (1.0-4.0); LYMPHOCYTES % (AUTO) 26 % (12-44); MEAN CORPUSCULAR HEMOGLOBIN 36 pg (25-34); MEAN CORPUSCULAR HGB CONC 33 g/dL (32-36); MEAN CORPUSCULAR VOLUME 107 fL (80-99); MEAN PLATELET VOLUME 10.6 fL (9.0-12.2); MONOCYTES # (AUTO) 0.4 10^3/uL (0.0-1.0); MONOCYTES % (AUTO) 5 % (0-12); NEUTROPHILS # (AUTO) 5.2 10^3/uL (1.8-7.8); NEUTROPHILS % (AUTO) 60 % (42-75); PLATELET COUNT 184 10^3/uL (130-400); WHITE BLOOD COUNT 8.7 10^3/uL (4.3-11.0)
[2022-09-24 17:41] LABS: CREATININE SERUM 0.44 MG/DL (0.60-1.30); POTASSIUM 4.3 MMOL/L (3.6-5.0)
[2022-09-24 17:42] LABS: ALBUMIN 3.4 GM/DL (3.2-4.5); BILIRUBIN,TOTAL 0.2 MG/DL (0.1-1.0); CALCIUM 8.9 MG/DL (8.5-10.1); TOTAL PROTEIN 7.4 GM/DL (6.4-8.2)
--- NOTE | 2022-09-24 19:01 | Diagnostic Imaging Report ---
EXAMINATION: CT abdomen and pelvis without contrast. TECHNIQUE: Multiple contiguous axial images were obtained through the abdomen and pelvis without the use of intravenous contrast. All CT scans use one or more of the following dose optimizing techniques: automated exposure control, MA and/or KvP adjustment based on patient size and exam type or iterative reconstruction. HISTORY: Abdominal pain. COMPARISON: None available. FINDINGS: Limited views of the lower thorax show mild centrilobular nodules in the lung bases suggestive of an endobronchial infection. The liver is normal without focal lesion. There is no biliary ductal dilation. Gallbladder is normal. Pancreas is normal. Spleen is normal. Adrenal glands are normal. The kidneys are normal. There is no hydronephrosis. Urinary bladder is normal. Bowel is normal in caliber without obstruction or inflammation. There is a percutaneous gastrostomy tube. No free fluid or air. No abdominal or pelvic lymphadenopathy. Aorta is normal in caliber without aneurysm. There is no suspicious osseus lesion. IMPRESSION: No acute abnormality in the abdomen or pelvis. Dictated by: Dictated on workstation # [id number]
[2022-09-24 19:33] LABS: CLARITY,URINE CLEAR; COLOR,URINE YELLOW; PH,URINE 7.5 (5-9)
[2022-09-24 19:34] LABS: BACTERIA,URINE NEGATIVE /HPF; BILIRUBIN,URINE NEGATIVE (NEGATIVE); GLUCOSE, URINE (UA) NEGATIVE (NEGATIVE); KETONES,URINE NEGATIVE (NEGATIVE); LEUKOCYTE ESTERASE ,URINE TRACE (NEGATIVE); NITRITE,URINE NEGATIVE (NEGATIVE); PROTEIN,URINE NEGATIVE (NEGATIVE); RENAL EPITHELIAL CELLS,URINE RARE /HPF; SQUAMOUS EPITHELIAL CELL,UR RARE /HPF; WBC,URINE 0-2 /HPF
== END 2022-09-24 19:57 | disposition home or self-care (01) ==
LOC: EDUNIT# 15:17 → ER FS 15:19
DX: K52.9 Noninfective gastroenteritis and colitis, unspecified (principal)
CPT/HCPCS: 36415; 51702; 74022; 74176; 80053; 81000; 85025; 86141